=== PATIENT | male | born 1995 | race American Indian/Alaskan Native ===

== ENCOUNTER 2020-09-28 12:27 | Emergency (ER) | payer SELFPAY ==
[2020-09-28 14:59] VITALS: BP 153/53
--- NOTE | 2020-09-28 15:08 | Emergency Department Report ---
ED General Adult HPI - General Chief complaint: Nausea/Vomiting/Diarrhea Stated complaint: VOMITING Time Seen by Provider: 09/28/20 15:05 Source: patient Mode of arrival: Ambulatory Limitations: No Limitations - History of Present Illness Initial comments: 25-year-old -[place] male patient presents with complaints of vomiting today. He states while at work, he became overheated and suddenly felt nauseous and vomited x1. He denies any hematemesis/coffee-ground emesis, abdominal pain, diarrhea/constipation, fever/chills/sweats, cough, shortness of breath, chest pain, or loss of taste or smell. He states he is feeling fine and felt fine immediately after vomiting. No preceding symptoms per patient. He denies any past medical history. Patient states he was seen here for medical clearance by his job - Related Data Previous Rx's Medication Instructions Recorded Last Taken Type Ondansetron [Zofran Odt] 4 mg PO Q8H PRN #10 tab.rapdis 09/28/20 Unknown Rx Allergies Allergy/AdvReac Type Severity Reaction Status Date / Time No Known Allergies Allergy Unverified 09/28/20 14:55 ED Review of Systems ROS: Stated complaint: VOMITING Other details as noted in HPI Constitutional: denies: chills, diaphoresis, fever, malaise, weakness Respiratory: denies: cough, shortness of breath Cardiovascular: denies: chest pain Gastrointestinal: vomiting. denies: abdominal pain, diarrhea, constipation, hematemesis Musculoskeletal: denies: back pain Skin: denies: change in color Neurological: denies: headache ED Past Medical Hx - Past Medical History Previous Medical History?: No - Surgical History Past Surgical History?: No - Medications Home Medications: Home Medications Medication Instructions Recorded Confirmed Last Taken Type Ondansetron [Zofran Odt] 4 mg PO Q8H PRN #10 tab.rapdis 09/28/20 Unknown Rx ED Physical Exam - General Limitations: No Limitations General appearance: alert, in no apparent distress - Head Head exam: Present: atraumatic, normocephalic - Eye Eye exam: Present: normal appearance. Absent: scleral icterus - Respiratory Respiratory exam: Present: normal lung sounds bilaterally. Absent: respiratory distress - Cardiovascular Cardiovascular Exam: Present: regular rate, normal rhythm - GI/Abdominal GI/Abdominal exam: Present: soft. Absent: tenderness - Neurological Exam Neurological exam: Present: alert, oriented X3 - Psychiatric Psychiatric exam: Present: normal affect, normal mood - Skin Skin exam: Present: warm, dry, intact, normal color. Absent: rash ED Course Vital Signs 09/28/20 14:58 Temperature 98.5 F Pulse Rate 74 Respiratory 18 Rate Blood Pressure 153/53 O2 Sat by Pulse 100 Oximetry ED Medical Decision Making - Medical Decision Making 25-year-old -[place] male patient presents with complaints of vomiting today. He states while at work, he became overheated and suddenly felt nauseous and vomited x1. He denies any hematemesis/coffee-ground emesis, abdominal pain, diarrhea/constipation, fever/chills/sweats, cough, shortness of breath, chest pain, or loss of taste or smell. He states he is feeling fine and felt fine immediately after vomiting. No preceding symptoms per patient. He denies any past medical history. Patient states he was seen here for medical clearance by his job Physical exam is normal. Patient denies any other symptoms. His vitals are within normal limits and he is well-appearing. Patient stable for discharge home and follow-up with his primary care doctor outpatient. Zofran given as needed. S plan of care and signs symptoms that should prompt immediate return to the emergency department in detail patient verbalizes understanding. Critical care attestation.: If time is entered above; I have spent that time in minutes in the direct care of this critically ill patient, excluding procedure time. ED Disposition Clinical Impression: Vomiting Disposition: 01 HOME / SELF CARE / HOMELESS Is pt being admited?: No Condition: Stable Instructions: Nausea and Vomiting, Adult Prescriptions: Ondansetron [Zofran Odt] 4 mg PO Q8H PRN #10 tab.rapdis PRN Reason: Nausea Referrals: [facility] [Provider Group] - 3-5 Days Forms: Work/School Release Form(ED)
== END 2020-09-28 15:08 | disposition home or self-care (01) ==
LOC: ED 12:27
DX: R11.2 Nausea with vomiting, unspecified (principal); Z79.899 Other long term (current) drug therapy
CPT/HCPCS: 99281